=== PATIENT | female | born 1985 | race Caucasian/White ===

== ENCOUNTER → 2017-04-09 | Outpatient (CLI) | payer BC ==
[~2017-04-09] MED LIST: ACET-1600 PO; ALBU6.7H INH; BUPR150T73 PO; BUTA1CAP57 PO; CHOL200024 PO; CIPR500T87 PO; FEXO180T72 PO; MELA5TAB21 PO; MULT-257 PO; MULT-658 PO; NORE1TAB26 PO; OMEG300C PO; iron PO
== END ==
LOC: STAR 12:46
PROVIDERS: ATTEND Obstetrics & Gynecology Gynecology
DX: Z02.9 Encounter for administrative examinations, unspecified (principal)

== ENCOUNTER 2017-04-11 07:28 | Day surgery (SDC) | payer BC ==
[2017-04-09 13:08] VITALS: BP 119/81
[2017-04-09 14:10] LABS: MICROSCOPIC NOT IND
[2017-04-09 14:16] LABS: BASOPHILS # (AUTO) 0.07 x10^3/uL (0-0.1); BASOPHILS % (AUTO) 1 % (0-1); EOSINOPHILS # (AUTO) 0.25 x10^3/uL (0-0.4); EOSINOPHILS % (AUTO) 4 % (1-7); LYMPHOCYTES # (AUTO) 1.75 x10^3/uL (1-3.4); LYMPHOCYTES % (AUTO) 27 % (22-44); MD NO; MEAN CORPUSCULAR HEMOGLOBIN 28.8 pg (27.0-34.8); MEAN CORPUSCULAR HGB CONC 33.1 g/dL (32.4-35.8); MEAN PLATELET VOLUME 7.8 fL (7.4-10.4); MONOCYTES # (AUTO) 0.49 x10^3/uL (0.2-0.8); MONOCYTES % (AUTO) 8 % (2-9); NEUTROPHILS % (AUTO) 61 % (42-75); PLATELET COUNT 296 x10^3/uL (130-400); RED BLOOD COUNT 4.59 x10^6/uL (3.82-5.3); RED CELL DISTRIBUTION WIDTH 14.8 % (9.6-15.2)
[2017-04-09 14:23] LABS: ANION GAP 7 mmol/L (5-15); CALCIUM 8.7 mg/dL (8.5-10.1); CHLORIDE 105 mmol/L (98-107); CREATININE 0.72 mg/dL (0.55-1.02)
[2017-04-09 14:25] LABS: CULTURE INDICATED? NO
[~2017-04-11] VITALS: Ht 162.6 cm; Wt 67.3 kg
[2017-04-11] MEDS ORDERED: FENTANYL PF 250 MCG/5ML ONE (07:54)
[2017-04-11] MEDS ORDERED: MIDAZOLAM 1 MG/ML, 2ML ONE (07:54)
[2017-04-11] MEDS ORDERED: PROPOFOL 10 MG/ML, 20ML ONE (07:55)
[2017-04-11] MEDS ORDERED: NEOSTIGMINE 1 MG/ML, 10ML ONE (07:56)
[2017-04-11] MEDS ORDERED: LIDOCAINE 1%, 2ML ONE (07:56)
[2017-04-11] MEDS ORDERED: GLYCOPYRROLATE 0.4 MG/2 ML, 2ML ONE ×2 (07:56)
[2017-04-11] MEDS ORDERED: CEFAZOLIN 1,000 MG ONE ×2 (07:57)
[2017-04-11] MEDS ORDERED: SODIUM CHLORIDE 0.9% PF 10ML ONE (07:57)
[2017-04-11] MEDS ORDERED: DEXAMETHASONE 4 MG/ML, 1ML ONE ×2 (07:58)
[2017-04-11] MEDS ORDERED: ONDANSETRON 2MG/ML, 2ML ONE (07:58)
[2017-04-11] MEDS ORDERED: LACTATED RINGERS 1,000 ML IV SCH (07:58)
[2017-04-11] MEDS ORDERED: KETOROLAC 30 MG/1 ML ONE (08:51)
[2017-04-11] MEDS ORDERED: LIDOCAINE 1%, 20ML ONE (09:31)
[2017-04-11] MEDS ORDERED: SILVER NITRATE STICK TP ONE (09:31)
[2017-04-11] MEDS ORDERED: ROCURONIUM 10 MG/ML,10ML ONE (09:49)
[2017-04-11] MEDS ORDERED: HYDROmorphone 1 MG/ML, 1ML IV PRN (10:00)
[2017-04-11] MEDS ORDERED: ONDANSETRON 2MG/ML, 2ML IVPush PRN (10:00)
[2017-04-11] MEDS ORDERED: hydrALAzine 20 MG/ML, 1ML IV PRN (10:00)
[2017-04-11] MEDS ORDERED: OXYcodone 5 MG/5 ML ORAL.SOL UDC PO PRN (10:00)
[2017-04-11] MEDS ORDERED: PROMETHAZINE 25 MG/ML, 1ML IV PRN (10:00)
[2017-04-11] MEDS ORDERED: ACETAMINOPHEN 325 MG TABLET PO PRN (10:00)
[2017-04-11] MEDS ORDERED: LABETALOL 5MG/ML, 20ML IV PRN (10:00)
[2017-04-11] MEDS ORDERED: ACETAMINOPHEN 650 MG/20.3 ML UDC ONE (10:41)
[2017-04-11] MEDS ORDERED: MEPERIDINE/PF 50 MG/ML ONE (10:42)
[2017-04-11] MEDS ORDERED: OXYcodone 5 MG/5 ML ORAL.SOL UDC ONE (10:42)
[2017-04-11] MEDS ORDERED: FENTANYL PF 100 MCG/2ML ONE (10:42)
[2017-04-11] MEDS: MEPERIDINE/PF 25MG/0.5ML IVPush PRN ×2 (10:45→11:01)
[2017-04-11] MEDS: FENTANYL PF 100 MCG/2ML IV PRN ×2 (11:25→11:32)
== END 2017-04-11 15:35 | disposition home or self-care (01) ==
LOC: OUT 07:28
PROVIDERS: ATTEND Obstetrics & Gynecology Gynecology
DX: Z30.2 Encounter for sterilization (principal); N92.0 Excessive and frequent menstruation with regular cycle; D64.9 Anemia, unspecified; J45.909 Unspecified asthma, uncomplicated
CPT/HCPCS: 36415; 58301; 58670; 80048; 81003; 84703; 85025; 88302; J0690; J1100; J1885; J2175; J2250; J2405; J2704; J2710; J3010; J3490; J7120